=== PATIENT | female | born 1980 | race Caucasian/White ===

== ENCOUNTER 2017-03-20 12:53 | Emergency (ER) | payer OTHER ==
[~2017-03-20 12:53] MED LIST: CLEOCIN HCL300 MG PO; FLEXERIL10 MG PO; LYRICA 75MG CAP75 MG PO; MACROBID 100 M100 MG PO; NORCO 325 MG-51 TA1 PO; PERCOCET 325 MG1 TA2 PO; ULTRAM50 M1 PO; VALIUM5 M1 PO; ZOFRAN ODT8 M1 PO; ZOFRAN4 M1 PO
[2017-03-20] MEDS ORDERED: MELOXICAM15 MG PO (13:02)
[2017-03-20] MEDS ORDERED: METHOCARBAMOL500 M1 PO (13:02)
[2017-03-20] MEDS ORDERED: VENLAFAXINE37.5 MG PO (13:03)
[2017-03-20] MEDS ORDERED: VIBRAMYCIN HYC100 MG PO (15:11)
[2017-03-20] MEDS ORDERED: NORCO 325 MG-51 TA1 PO (15:11)
[2017-03-20 15:27] VITALS: BP 112/62
== END 2017-03-20 15:27 | disposition home or self-care (01) ==
LOC: ED 12:53
DX: S91.144A Puncture wound with foreign body of right lesser toe(s) without damage to nail, initial encounter (principal); S92.524A Nondisplaced fracture of middle phalanx of right lesser toe(s), initial encounter for closed fracture; W34.010A Accidental discharge of airgun, initial encounter; Y92.009 Unspecified place in unspecified non-institutional (private) residence as the place of occurrence of the external cause; Z88.0 Allergy status to penicillin; Z88.2 Allergy status to sulfonamides; F17.210 Nicotine dependence, cigarettes, uncomplicated
CPT/HCPCS: L4360

== ENCOUNTER → 2017-09-28 | Outpatient (CLI) | payer BC ==
[~2017-09-28] MED LIST changes: +MELOXICAM15 MG PO; +METHOCARBAMOL500 M1 PO; +VENLAFAXINE37.5 MG PO; +VIBRAMYCIN HYC100 MG PO
== END ==
LOC: RAD 09:57
DX: R07.2 Precordial pain (principal); V89.2XXA Person injured in unspecified motor-vehicle accident, traffic, initial encounter

== ENCOUNTER → 2019-01-17 | Outpatient (CLI) | payer BC ==
[2019-01-17 14:18] LABS: EOS % 0.2 % (1.0-5.0); HEMATOCRIT 40.4 % (37.0-47.0); HEMOGLOBIN 13.4 g/dL (12.5-16.0); LYMPH# 1.4 (1.50-4.00); MEAN CELL VOLUME 97 fl (78-100); MEAN CORPUSCULAR HEMOGLOBIN 32 pg (27-31); MEAN CORPUSCULAR HGB CONC 33 g/dL (33-37); MEAN PLATELET VOLUME 9.1 fl (7.4-10.4); MONO # 0.4 (0.20-0.80); NEU # 3.1 (1.40-6.50); PLATELET COUNT 279 K/mm3 (130-400); RED BLOOD COUNT 4.16 M/mm3 (4.10-5.30); RED CELL DISTRIBUTION WIDTH 13.1 % (11.5-14.5); WHITE BLOOD COUNT 4.8 K/mm3 (4.8-10.8)
[2019-01-17 14:33] LABS: POTASSIUM 3.7 mmol/L (3.5-5.1); SODIUM 140 mmol/L (136-145)
[2019-01-17 14:34] LABS: ALBUMIN 4.5 g/dL (3.5-5.0); CALCIUM 9.3 mg/dL (8.3-10.5)
[2019-01-17 14:36] LABS: GLUCOSE 86 mg/dL (65-105); TOTAL PROTEIN 7.6 g/dL (6.4-8.3)
[2019-01-17 14:38] LABS: CARBON DIOXIDE 20 mmol/L (22-29); TOTAL BILIRUBIN 0.3 mg/dL (0.2-1.2)
[2019-01-17 14:41] LABS: AST-SGOT 19 U/L (5-34)
[2019-01-17 14:43] LABS: ALT/SGPT 25 U/L (0-55)
[2019-01-17 16:23] LABS: ERYTHROCYTE SEDIMENTATION RATE 7 mm/hr (0-20)
== END ==
LOC: LAB 14:04
PROVIDERS: Family Medicine
DX: Z00.00 Encounter for general adult medical examination without abnormal findings (principal); Z13.220 Encounter for screening for lipoid disorders; R53.83 Other fatigue

== ENCOUNTER → 2019-03-10 | Outpatient (CLI) | payer BC | LOC: LAB 07:19 | DX: M35.9 Systemic involvement of connective tissue, unspecified (principal) ==

== ENCOUNTER → 2019-08-25 | Outpatient (CLI) | payer BC | LOC: RAD 09:25 | DX: M25.552 Pain in left hip (principal) ==

== ENCOUNTER 2020-03-16 21:51 | Emergency (ER) | payer BC ==
[2020-03-16] MEDS ORDERED: KLONOPIN 0.5MG0.5 MG PO (22:11)
[2020-03-16 23:28] VITALS: BP 132/78
[2020-03-16] MEDS ORDERED: NORCO 325 MG-51 TA1 PO (23:31)
== END 2020-03-16 23:38 | disposition home or self-care (01) ==
LOC: ED 21:51
DX: S22.42XA Multiple fractures of ribs, left side, initial encounter for closed fracture (principal); S50.02XA Contusion of left elbow, initial encounter; F17.200 Nicotine dependence, unspecified, uncomplicated; Z88.0 Allergy status to penicillin; Z88.1 Allergy status to other antibiotic agents; Z88.2 Allergy status to sulfonamides; W10.9XXA Fall (on) (from) unspecified stairs and steps, initial encounter; Y92.009 Unspecified place in unspecified non-institutional (private) residence as the place of occurrence of the external cause
CPT/HCPCS: J1885

== ENCOUNTER → 2021-01-25 | Outpatient (CLI) | payer OTHER ==
[~2021-01-25] MED LIST changes: +KLONOPIN 0.5MG0.5 MG PO
[2021-01-25 15:26] LABS: BASO # 0.02 (0.02-0.10); EOS # 0.05 (0.04-0.40); EOS % 0.8 % (1.0-5.0); HEMATOCRIT 41.2 % (37.0-47.0); HEMOGLOBIN 13.6 g/dL (12.5-16.0); LYMPH# 2.12 (1.50-4.00); MEAN CELL VOLUME 97 fl (78-100); MEAN CORPUSCULAR HEMOGLOBIN 32 pg (27-31); MEAN CORPUSCULAR HGB CONC 33 g/dL (33-37); MEAN PLATELET VOLUME 8.9 fl (7.4-10.4); MONO # 0.35 (0.20-0.80); NEU # 4.07 (1.40-6.50); PLATELET COUNT 304 K/mm3 (130-400); RED BLOOD COUNT 4.23 M/mm3 (4.10-5.30); RED CELL DISTRIBUTION WIDTH 12.8 % (11.5-14.5); WHITE BLOOD COUNT 6.6 K/mm3 (4.8-10.8)
[2021-01-25 15:35] LABS: POTASSIUM 3.3 mmol/L (3.5-5.1)
[2021-01-25 15:36] LABS: ALBUMIN 4.6 g/dL (3.5-5.0)
[2021-01-25 15:40] LABS: TOTAL BILIRUBIN 0.3 mg/dL (0.2-1.2)
== END ==
LOC: LAB 15:09
PROVIDERS: Family Medicine
DX: Z00.00 Encounter for general adult medical examination without abnormal findings (principal); E78.5 Hyperlipidemia, unspecified

== ENCOUNTER 2021-12-12 10:30 | Emergency (ER) | payer OTHER ==
[2021-12-12] MEDS ORDERED: SERTRALINE HYDR25 MG PO (11:36)
[2021-12-12 12:16] VITALS: BP 138/82
== END 2021-12-12 12:10 | disposition home or self-care (01) ==
LOC: ED 10:30
DX: S09.90XA Unspecified injury of head, initial encounter (principal); Z28.310 Unvaccinated for COVID-19; V43.52XA Car driver injured in collision with other type car in traffic accident, initial encounter; Y92.410 Unspecified street and highway as the place of occurrence of the external cause

== ENCOUNTER → 2022-01-15 | Outpatient (CLI) | payer OTHER ==
[~2022-01-15] MED LIST changes: +SERTRALINE HYDR25 MG PO
[2022-01-15 09:32] LABS: BASO # 0.01 K/mm3 (0.02-0.10); EOS # 0.07 K/mm3 (0.04-0.40); EOS % 1.2 % (1.0-5.0); HEMATOCRIT 40.2 % (37.0-47.0); HEMOGLOBIN 13.2 g/dL (12.5-16.0); LYMPH# 1.63 K/mm3 (1.50-4.00); MEAN CELL VOLUME 96 fl (78-100); MEAN CORPUSCULAR HEMOGLOBIN 32 pg (27-31); MEAN CORPUSCULAR HGB CONC 33 g/dL (33-37); MEAN PLATELET VOLUME 8.6 fl (7.4-10.4); MONO # 0.46 K/mm3 (0.20-0.80); NEU # 3.48 K/mm3 (1.40-6.50); PLATELET COUNT 311 K/mm3 (130-400); RED BLOOD COUNT 4.19 M/mm3 (4.10-5.30); RED CELL DISTRIBUTION WIDTH 12.6 % (11.5-14.5); WHITE BLOOD COUNT 5.7 K/mm3 (4.8-10.8)
[2022-01-15 09:36] LABS: ALBUMIN 4.6 g/dL (3.5-5.0); POTASSIUM 4.3 mmol/L (3.5-5.1)
[2022-01-15 09:37] LABS: CALCIUM 9.4 mg/dL (8.3-10.5)
[2022-01-15 09:39] LABS: TOTAL PROTEIN 7.8 g/dL (6.4-8.3)
[2022-01-15 09:40] LABS: TOTAL BILIRUBIN 0.3 mg/dL (0.2-1.2)
== END ==
LOC: LAB 08:53
PROVIDERS: Family Medicine
DX: Z00.00 Encounter for general adult medical examination without abnormal findings (principal); Z12.39 Encounter for other screening for malignant neoplasm of breast; M79.7 Fibromyalgia; G43.009 Migraine without aura, not intractable, without status migrainosus; F32.A Depression, unspecified; F41.1 Generalized anxiety disorder; E66.9 Obesity, unspecified; G89.29 Other chronic pain; G47.09 Other insomnia; Z72.0 Tobacco use; E78.5 Hyperlipidemia, unspecified

== ENCOUNTER → 2023-02-05 | Outpatient (CLI) | payer BC | LOC: LAB 08:52 | DX: Z51.81 Encounter for therapeutic drug level monitoring (principal) ==